=== PATIENT | male | born 1975 | race Caucasian/White ===

== ENCOUNTER 2017-04-06 15:57 | Inpatient (IN) | payer OTHER ==
[~2017-04-06] VITALS: Ht 180.3 cm; Wt 126.5 kg
[2017-04-06 16:24] LABS: BASOPHIL COUNT 0.2 K/uL (0-0.1); EOSINOPHIL (%) 1.6 % (0-5); EOSINOPHIL COUNT 0.3 K/uL (0-0.3); HEMATOCRIT 50.3 % (38.0-50.0); IMMATURE GRANULOCYTE (%) 0.8 % (0.0-0.7); IMMATURE GRANULOCYTE COUNT 0.2 K/uL; INSTRUMENT ABS NEUTROPHIL CT 9.9 K/uL; LYMPHOCYTE COUNT 6.3 K/uL (1.0-2.8); MCH 28.8 PG (29.0-34.0); MCV 89.8 FL (86-99); MEAN PLAT.VOLUME 10.4 uM^3 (9.0-12.4); MONOCYTE COUNT 1.3 K/uL (0-0.8); NEUTROPHIL COUNT 9.9 K/uL (1.8-6.4); PLATELET COUNT 238 K/uL (156-360); RBC DIS.WIDTH-CV 13.3 % (11.8-14.6); RBC DIS.WIDTH-SD 43.8 % (39-53); WHITE BLOOD COUNT 18.1 K/uL (4.1-10.2)
[2017-04-06 16:48] LABS: TROP-I INTERPRETATION NEGATIVE; TROPONIN-I 0.12 ng/mL (0.0-0.30)
[2017-04-06 17:07] LABS: CREATININE 1.4 mg/dL (0.6-1.3)
[2017-04-06 17:27] LABS: CARBOXY HGB 1.8 % (0-5); METHEMOGLOBIN 1.2 % (0-1.5); PCO2 72 mm Hg (35-45); PO2 57 mm Hg (80-100)
[2017-04-06 17:31] LABS: COMMENTS - BLOOD GASES A+C+; DEVICE VENT; FI02 100 %; MECHANICAL RATE 18 resp/min; MODE ACVC; PEEP 8 CM/H20; SITE RR; TIDAL VOLUME 600 ML; TOTAL RESP RATE 18 resp/min; pH < 6.91 (7.35-7.45)
[2017-04-06 17:36] LABS: CHLORIDE 111 mEq/L (99-109); POTASSIUM 3.4 mEq/L (3.7-5.4); SODIUM 146 mEq/L (136-147)
[2017-04-06 17:40] LABS: ANION GAP 24 MEQ/L (2-14); TOTAL BILIRUBIN 0.3 mg/dL (0.0-1.0)
[2017-04-06 17:42] LABS: ALKALINE PHOSPHATASE 97 IU/L (3-129); GFR ESTIMATE (CALCULATED) 44 mL/min/
[2017-04-06 17:43] LABS: UREA NITROGEN (BUN) 14 mg/dL (9-23)
[2017-04-06 17:56] LABS: GLUCOSE 508 mg/dL (70-99)
[2017-04-06 19:19] LABS: ADD MIUA? YES; BILIRUBIN NEGATIVE; BLOOD SMALL; COLOR YELLOW ((YELLOW)); GLUCOSE (STRIP) >=500; KETONES 5; LEUKOCYTES NEGATIVE; NITRITE NEGATIVE; PROTEIN (STRIP) >=500; SPECIFIC GRAVITY 1.011 (1.000-1.030); UROBILINOGEN 0.2 MG/DL (0.2-1.0)
[2017-04-06 19:20] LABS: BASE EXCESS -15.5 mEq/L (-3 to +3); BICARBONATE 13.3 mEq/L (22-26); COMMENTS - BLOOD GASES C+A+; DEVICE VENTILATOR; FI02 100 %; INSPIRATION TIME 0.9 seconds; MECHANICAL RATE 22 resp/min; METHEMOGLOBIN 1.3 % (0-1.5); MODE A/C VC+; PCO2 41 mm Hg (35-45); PEEP 7 CM/H20; PO2 120 mm Hg (80-100); SITE RR; TIDAL VOLUME 600 ML; TOTAL RESP RATE 27 resp/min
[2017-04-06 19:21] LABS: pH 7.12 (7.35-7.45)
[2017-04-06 19:38] LABS: BACTERIA 2+ /HPF; CASTS NONE SEEN /LPF; CRYSTALS NONE SEEN; EPITHELIAL CELLS RARE /HPF; MUCUS RARE /LPF; RED BLOOD CELLS 15-20 /HPF (0-5); UCUL ADDED? YES; WHITE BLOOD CELLS 30-40 /HPF (0-5)
[2017-04-06 19:49] LABS: AMPHETAMINE NEGATIVE (500 ng/mL); BARBITURATES NEGATIVE (200 ng/mL); BENZODIAZEPINES NEGATIVE (150 ng/mL); COCAINE NEGATIVE (150 ng/mL); INTERNAL CONTROLS VALID? YES; METHADONE NEGATIVE (200 ng/mL); METHAMPHETAMINE NEGATIVE (500 ng/mL); OPIATES (MORPHINE) NEGATIVE (100 ng/mL); OXYCODONE NEGATIVE (100 ng/mL); PHENCYCLIDINE NEGATIVE (25 ng/mL); PROPOXYPHENE NEGATIVE (300 ng/mL); THC CANNABINOIDS NEGATIVE (50 ng/mL); TRICYCLIC ANTIDEPRESSANTS NEGATIVE (300 ng/mL)
[2017-04-06 19:56] LABS: TROP-I INTERPRETATION NEGATIVE; TROPONIN-I 0.12 ng/mL (0.0-0.30)
[2017-04-06 20:54] LABS: POINT-OF-CARE METER ID UU14100415
[2017-04-06 20:55] VITALS: BP 135/84
[2017-04-06 21:05] VITALS: BP 135/78
[2017-04-06 21:20] VITALS: BP 129/78
[2017-04-06 21:22] LABS: BASE EXCESS -14.6 mEq/L (-3 to +3); BICARBONATE 13.6 mEq/L (22-26); CARBOXY HGB 1.3 % (0-5); METHEMOGLOBIN 2.3 % (0-1.5); PCO2 39 mm Hg (35-45)
[2017-04-06 21:25] LABS: COMMENTS - BLOOD GASES C+; DEVICE VENT; FI02 100 %; INSPIRATION TIME 0.9 seconds; MECHANICAL RATE 22 resp/min; MODE AC/VC+; PO2 351 mm Hg (80-100); SITE LR; TIDAL VOLUME 600 ML; TOTAL RESP RATE 28 resp/min; pH 7.15 (7.35-7.45)
[2017-04-06 21:26] LABS: PEEP 7 CM/H20
[2017-04-06 21:30] VITALS: BP 126/109
[2017-04-06 22:00] VITALS: BP 115/73
[2017-04-06 22:09] LABS: POINT-OF-CARE METER ID UU14314083
[2017-04-06 22:35] LABS: METH RESISTANT S AUREUS PCR NEGATIVE (NEGATIVE)
[2017-04-06 22:44] LABS: MAGNESIUM 1.9 mg/dL (1.3-2.7)
[2017-04-06 23:00] VITALS: BP 104/70
[2017-04-06 23:01] LABS: PROBE CHECK PASS; SPECIMEN PROCESSING CONTROL PASS
[2017-04-07] VITALS (22 sets, daily range): BP systolic 99–176; BP diastolic 62–112
[2017-04-07 00:12] LABS: CHLORIDE 111 mEq/L (99-109)
[2017-04-07 00:13] LABS: SODIUM 140 mEq/L (136-147)
[2017-04-07 00:16] LABS: ANION GAP 20 MEQ/L (2-14)
[2017-04-07 00:18] LABS: GFR ESTIMATE (CALCULATED) 41 mL/min/
[2017-04-07 00:19] LABS: GLUCOSE 407 mg/dL (70-99); UREA NITROGEN (BUN) 19 mg/dL (9-23)
[2017-04-07 00:20] LABS: POTASSIUM 4.4 mEq/L (3.7-5.4)
[2017-04-07 00:53] LABS: BASOPHIL COUNT 0.1 K/uL (0-0.1); EOSINOPHIL (%) 0 % (0-5); HEMATOCRIT 44.1 % (38.0-50.0); IMMATURE GRANULOCYTE (%) 3.2 % (0.0-0.7); IMMATURE GRANULOCYTE COUNT 1.1 K/uL; INSTRUMENT ABS NEUTROPHIL CT 27.8 K/uL; LYMPHOCYTE COUNT 2.1 K/uL (1.0-2.8); MCH 29.7 PG (29.0-34.0); MCHC 31.7 G/DL (30.0-36.0); MCV 93.6 FL (86-99); MEAN PLAT.VOLUME 10.5 uM^3 (9.0-12.4); MONOCYTE (%) 5.8 % (3-12); MONOCYTE COUNT 1.9 K/uL (0-0.8); NEUTROPHIL (%) 84.3 % (45-76); NEUTROPHIL COUNT 27.8 K/uL (1.8-6.4); PLATELET COUNT 233 K/uL (156-360); RBC DIS.WIDTH-CV 13.4 % (11.8-14.6); RBC DIS.WIDTH-SD 45.2 % (39-53); RED BLOOD COUNT 4.71 M/uL (4.00-5.50)
[2017-04-07 02:19] LABS: INFLUENZA A VIRAL ANTIGEN NEGATIVE; INFLUENZA B VIRAL ANTIGEN NEGATIVE
[2017-04-07 03:38] LABS: BASE EXCESS -12.4 mEq/L (-3 to +3); BICARBONATE 12.9 mEq/L (22-26); CARBOXY HGB 1.6 % (0-5); METHEMOGLOBIN 1.9 % (0-1.5)
[2017-04-07 03:39] LABS: COMMENTS - BLOOD GASES C+; DEVICE VENT; FI02 50 %; INSPIRATION TIME 0.9 seconds; MECHANICAL RATE 28 resp/min; MODE AC+; PCO2 28 mm Hg (35-45); PO2 129 mm Hg (80-100); SITE RR; TIDAL VOLUME 600 ML; TOTAL RESP RATE 28 resp/min; pH 7.27 (7.35-7.45)
[2017-04-07 03:40] LABS: PEEP 7 CM/H20
[2017-04-07 04:35] LABS: BASOPHIL COUNT 0.1 K/uL (0-0.1); EOSINOPHIL (%) 0 % (0-5); HEMATOCRIT 44.2 % (38.0-50.0); IMMATURE GRANULOCYTE (%) 1.2 % (0.0-0.7); IMMATURE GRANULOCYTE COUNT 0.3 K/uL; INSTRUMENT ABS NEUTROPHIL CT 22.7 K/uL; INTER. NORMALIZED RATIO 1.4; LYMPHOCYTE COUNT 1.8 K/uL (1.0-2.8); MCH 28.5 PG (29.0-34.0); MCHC 31.9 G/DL (30.0-36.0); MCV 89.5 FL (86-99); MEAN PLAT.VOLUME 10.3 uM^3 (9.0-12.4); MONOCYTE (%) 5.2 % (3-12); MONOCYTE COUNT 1.4 K/uL (0-0.8); NEUTROPHIL (%) 86.7 % (45-76); NEUTROPHIL COUNT 22.7 K/uL (1.8-6.4); PLATELET COUNT 213 K/uL (156-360); PROTHROMBIN TIME 15.5 SEC (10.2-12.9); RBC DIS.WIDTH-CV 13.4 % (11.8-14.6); RBC DIS.WIDTH-SD 43.8 % (39-53); RED BLOOD COUNT 4.94 M/uL (4.00-5.50); WHITE BLOOD COUNT 26.2 K/uL (4.1-10.2)
[2017-04-07 04:40] LABS: INTER. NORMALIZED RATIO 1.4; PROTHROMBIN TIME 15.4 SEC (10.2-12.9)
[2017-04-07 04:43] LABS: PTT 30.3 SEC (25-37)
[2017-04-07 04:52] LABS: TROP-I INTERPRETATION POSITIVE
[2017-04-07 04:55] LABS: TROPONIN-I 2.07 ng/mL (0.0-0.30)
[2017-04-07 05:03] LABS: CHLORIDE 108 mEq/L (99-109); POTASSIUM 5.2 mEq/L (3.7-5.4); SODIUM 140 mEq/L (136-147)
[2017-04-07 05:06] LABS: ANION GAP 19 MEQ/L (2-14)
[2017-04-07 05:09] LABS: GFR ESTIMATE (CALCULATED) 39 mL/min/
[2017-04-07 05:10] LABS: UREA NITROGEN (BUN) 22 mg/dL (9-23)
[2017-04-07 05:12] LABS: GLUCOSE 433 mg/dL (70-99); MAGNESIUM 1.5 mg/dL (1.3-2.7)
[2017-04-07 06:13] LABS: POINT-OF-CARE METER ID UU14314083
[2017-04-07 07:30] LABS: POINT-OF-CARE METER ID UU14208751
[2017-04-07 08:22] LABS: INTERNAL CONTROL VALID? YES
[2017-04-07 08:34] LABS: POINT-OF-CARE METER ID UU14208751
[2017-04-07 09:43] LABS: POINT-OF-CARE METER ID UU14208751
[2017-04-07 09:58] LABS: BASOPHIL COUNT 0.1 K/uL (0-0.1); EOSINOPHIL (%) 0 % (0-5); HEMATOCRIT 44.5 % (38.0-50.0); IMMATURE GRANULOCYTE (%) 1.2 % (0.0-0.7); IMMATURE GRANULOCYTE COUNT 0.3 K/uL; INSTRUMENT ABS NEUTROPHIL CT 22.8 K/uL; LYMPHOCYTE COUNT 2.4 K/uL (1.0-2.8); MCH 28.9 PG (29.0-34.0); MCHC 32.4 G/DL (30.0-36.0); MCV 89.2 FL (86-99); MEAN PLAT.VOLUME 10.5 uM^3 (9.0-12.4); MONOCYTE COUNT 1.6 K/uL (0-0.8); NEUTROPHIL (%) 83.7 % (45-76); NEUTROPHIL COUNT 22.8 K/uL (1.8-6.4); PLATELET COUNT 211 K/uL (156-360); RBC DIS.WIDTH-CV 13.6 % (11.8-14.6); RBC DIS.WIDTH-SD 44.2 % (39-53); RED BLOOD COUNT 4.99 M/uL (4.00-5.50); WHITE BLOOD COUNT 27.2 K/uL (4.1-10.2)
[2017-04-07 10:11] LABS: BASE EXCESS -8.4 mEq/L (-3 to +3); CARBOXY HGB 2.1 % (0-5); COMMENTS - BLOOD GASES NA C+; METHEMOGLOBIN 1.9 % (0-1.5); PCO2 26 mm Hg (35-45); PO2 78 mm Hg (80-100); SITE RR; pH 7.37 (7.35-7.45)
[2017-04-07 10:12] LABS: DEVICE VENT; FI02 40 %; MECHANICAL RATE 28 resp/min; MODE AC VC+; PEEP 5 CM/H20; TIDAL VOLUME 600 ML; TOTAL RESP RATE 28 resp/min
[2017-04-07 10:16] LABS: INTER. NORMALIZED RATIO 1.1; PROTHROMBIN TIME 12.8 SEC (10.2-12.9)
[2017-04-07 10:19] LABS: PTT 24.9 SEC (25-37)
[2017-04-07 10:20] LABS: TROP-I INTERPRETATION POSITIVE
[2017-04-07 10:21] LABS: ANION GAP 14 MEQ/L (2-14); CHLORIDE 111 MEQ/L (99-109); GLUCOSE 313 mg/dL (70-99); MAGNESIUM 2.3 mg/dl (1.3-2.7); POTASSIUM 4.2 MEQ/L (3.7-5.4); SAMPLE HEMOLYSIS CHECK 0; SAMPLE ICTERIC CHECK 0; SAMPLE LIPEMIA CHECK 0; SODIUM 140 MEQ/L (136-147); TROPONIN-I 1.86 ng/mL (0.0-0.30); UREA NITROGEN (BUN) 21 mg/dL (9-23)
[2017-04-07 10:26] LABS: GFR ESTIMATE (CALCULATED) 59 mL/min/
[2017-04-07 10:50] LABS: POINT-OF-CARE METER ID UU14208751
[2017-04-07 12:09] LABS: POINT-OF-CARE METER ID UU14174217; POINT-OF-CARE USER ID 612031313
[2017-04-07 12:22] LABS: EOSINOPHIL (%) 0 % (0-5); IMMATURE GRANULOCYTE (%) 1.2 % (0.0-0.7); IMMATURE GRANULOCYTE COUNT 0.3 K/uL; INSTRUMENT ABS NEUTROPHIL CT 22.9 K/uL; LYMPHOCYTE COUNT 1.9 K/uL (1.0-2.8); MCH 28.5 PG (29.0-34.0); MCHC 32.9 G/DL (30.0-36.0); MCV 86.6 FL (86-99); MEAN PLAT.VOLUME 10.4 uM^3 (9.0-12.4); MONOCYTE (%) 4.7 % (3-12); MONOCYTE COUNT 1.2 K/uL (0-0.8); NEUTROPHIL (%) 86.7 % (45-76); NEUTROPHIL COUNT 22.9 K/uL (1.8-6.4); PLATELET COUNT 185 K/uL (156-360); RBC DIS.WIDTH-CV 13.4 % (11.8-14.6); RED BLOOD COUNT 4.85 M/uL (4.00-5.50); WHITE BLOOD COUNT 26.3 K/uL (4.1-10.2)
[2017-04-07 12:27] LABS: INTER. NORMALIZED RATIO 1.1; PROTHROMBIN TIME 12.6 SEC (10.2-12.9)
[2017-04-07 12:43] LABS: TROP-I INTERPRETATION POSITIVE; TROPONIN-I 1.63 ng/mL (0.0-0.30)
[2017-04-07 12:48] LABS: ANION GAP 15 MEQ/L (2-14); CHLORIDE 112 MEQ/L (99-109); GFR ESTIMATE (CALCULATED) > 59 mL/min/; GLUCOSE 313 mg/dL (70-99); POTASSIUM 3.9 MEQ/L (3.7-5.4); SAMPLE HEMOLYSIS CHECK 0; SAMPLE ICTERIC CHECK 0; SAMPLE LIPEMIA CHECK 0; SODIUM 141 MEQ/L (136-147); UREA NITROGEN (BUN) 20 mg/dL (9-23)
[2017-04-07 13:12] LABS: POINT-OF-CARE METER ID UU14208751
[2017-04-07 14:09] LABS: POINT-OF-CARE METER ID UU14314083
[2017-04-07 15:10] LABS: POINT-OF-CARE METER ID UU14314083
[2017-04-07 16:11] LABS: BASE EXCESS -4.3 mEq/L (-3 to +3); BICARBONATE 17.8 mEq/L (22-26); COMMENTS - BLOOD GASES NA C+; DEVICE VENT; FI02 40 %; MECHANICAL RATE 28 resp/min; METHEMOGLOBIN 1.8 % (0-1.5); MODE AC VC+; PCO2 25 mm Hg (35-45); PO2 71 mm Hg (80-100); SITE RR; TOTAL RESP RATE 28 resp/min; pH 7.46 (7.35-7.45)
[2017-04-07 16:12] LABS: PEEP 5 CM/H20; TIDAL VOLUME 600 ML
[2017-04-07 16:15] LABS: POINT-OF-CARE METER ID UU14208751
[2017-04-07 16:33] LABS: EOSINOPHIL (%) 0 % (0-5); HEMATOCRIT 41.9 % (38.0-50.0); IMMATURE GRANULOCYTE (%) 1.5 % (0.0-0.7); IMMATURE GRANULOCYTE COUNT 0.4 K/uL; INSTRUMENT ABS NEUTROPHIL CT 24.4 K/uL; LYMPHOCYTE COUNT 1.9 K/uL (1.0-2.8); MCHC 33.2 G/DL (30.0-36.0); MCV 87.5 FL (86-99); MEAN PLAT.VOLUME 10.2 uM^3 (9.0-12.4); MONOCYTE (%) 5.1 % (3-12); MONOCYTE COUNT 1.4 K/uL (0-0.8); NEUTROPHIL (%) 86.5 % (45-76); NEUTROPHIL COUNT 24.4 K/uL (1.8-6.4); PLATELET COUNT 190 K/uL (156-360); RBC DIS.WIDTH-CV 13.6 % (11.8-14.6); RBC DIS.WIDTH-SD 43.5 % (39-53); RED BLOOD COUNT 4.79 M/uL (4.00-5.50); WHITE BLOOD COUNT 28.2 K/uL (4.1-10.2)
[2017-04-07 16:43] LABS: INTER. NORMALIZED RATIO 1.1; PROTHROMBIN TIME 12.4 SEC (10.2-12.9)
[2017-04-07 16:46] LABS: PTT 23.2 SEC (25-37)
[2017-04-07 16:53] LABS: TROP-I INTERPRETATION POSITIVE; TROPONIN-I 1.29 ng/mL (0.0-0.30)
[2017-04-07 16:57] LABS: ANION GAP 11 MEQ/L (2-14); CHLORIDE 112 MEQ/L (99-109); GFR ESTIMATE (CALCULATED) 59 mL/min/; GLUCOSE 207 mg/dL (70-99); POTASSIUM 3.6 MEQ/L (3.7-5.4); SAMPLE HEMOLYSIS CHECK 0; SAMPLE ICTERIC CHECK 0; SAMPLE LIPEMIA CHECK 0; SODIUM 144 MEQ/L (136-147); UREA NITROGEN (BUN) 19 mg/dL (9-23)
[2017-04-07 17:02] LABS: MAGNESIUM 1.9 mg/dl (1.3-2.7)
[2017-04-07 17:20] LABS: POINT-OF-CARE METER ID UU14314083
[2017-04-07 18:25] LABS: POINT-OF-CARE METER ID UU14208751
[2017-04-07 19:35] LABS: POINT-OF-CARE METER ID UU14208751; POINT-OF-CARE USER ID LABHNS84
[2017-04-07 19:54] LABS: POINT-OF-CARE METER ID UU14208751; POINT-OF-CARE USER ID LABHNS84
[2017-04-07 20:56] LABS: POINT-OF-CARE METER ID UU14208751; POINT-OF-CARE USER ID ENVSME70
[2017-04-07 21:59] LABS: POINT-OF-CARE METER ID UU14208751; POINT-OF-CARE USER ID LABHNS84
[2017-04-07 22:58] LABS: POINT-OF-CARE METER ID UU14208751; POINT-OF-CARE USER ID LABHNS84
[2017-04-08] VITALS (14 sets, daily range): BP systolic 82–165; BP diastolic 52–109
[2017-04-08] LABS: POINT-OF-CARE METER ID UU14314083
[2017-04-08 01:02] LABS: POINT-OF-CARE METER ID UU14314083
[2017-04-08 02:06] LABS: POINT-OF-CARE METER ID UU14208751
[2017-04-08 04:10] LABS: POINT-OF-CARE METER ID UU14208751
[2017-04-08 05:13] LABS: POINT-OF-CARE METER ID UU14314083
[2017-04-08 05:55] LABS: ANION GAP 11 MEQ/L (2-14); CHLORIDE 115 MEQ/L (99-109); GFR ESTIMATE (CALCULATED) > 59 mL/min/; GLUCOSE 128 mg/dL (70-99); POTASSIUM 4.1 MEQ/L (3.7-5.4); SAMPLE HEMOLYSIS CHECK 1; SAMPLE ICTERIC CHECK 0; SAMPLE LIPEMIA CHECK 0; SODIUM 146 MEQ/L (136-147); UREA NITROGEN (BUN) 16 mg/dL (9-23)
[2017-04-08 06:14] LABS: EOSINOPHIL (%) 0 % (0-5); HEMATOCRIT 37.1 % (38.0-50.0); IMMATURE GRANULOCYTE (%) 1.4 % (0.0-0.7); IMMATURE GRANULOCYTE COUNT 0.4 K/uL; INSTRUMENT ABS NEUTROPHIL CT 20.8 K/uL; LYMPHOCYTE COUNT 1.8 K/uL (1.0-2.8); MCH 29.2 PG (29.0-34.0); MCHC 33.4 G/DL (30.0-36.0); MCV 87.3 FL (86-99); MEAN PLAT.VOLUME 10.2 uM^3 (9.0-12.4); MONOCYTE (%) 7.2 % (3-12); MONOCYTE COUNT 1.8 K/uL (0-0.8); NEUTROPHIL (%) 83.8 % (45-76); NEUTROPHIL COUNT 20.8 K/uL (1.8-6.4); PLATELET COUNT 176 K/uL (156-360); RED BLOOD COUNT 4.25 M/uL (4.00-5.50); WHITE BLOOD COUNT 24.8 K/uL (4.1-10.2)
[2017-04-08 06:22] LABS: POINT-OF-CARE METER ID UU14208751
[2017-04-08 07:33] LABS: POINT-OF-CARE METER ID UU14208751; POINT-OF-CARE USER ID 612031313
[2017-04-08 07:45] LABS: Estimated Average Glucose 206 mg/dL (70-123); HEMOGLOBIN A1c (GLYCOHEMOGLOB) 8.8 % HGB (Below 5.7)
[2017-04-08 08:39] LABS: POINT-OF-CARE METER ID UU14314083
[2017-04-08 10:15] LABS: POINT-OF-CARE METER ID UU14208751
[2017-04-08 11:08] LABS: POINT-OF-CARE METER ID UU14314083
[2017-04-08 12:10] LABS: POINT-OF-CARE METER ID UU14314083
[2017-04-08 13:16] LABS: POINT-OF-CARE METER ID UU14314083
[2017-04-08 16:30] LABS: POINT-OF-CARE METER ID UU14314083
[2017-04-22 14:31] LABS: RESEND RESULTS RESEND RESULTS
== END 2017-04-08 16:18 | DRG 296 ==
LOC: EME 15:57 → 4WEST 18:54 → EDOF 18:54 → ENRESERV 18:55 → 4WEST 20:56
PROVIDERS: Emergency Medicine; Internal Medicine Critical Care Medicine; Internal Medicine Pulmonary Disease
PROC: 3E03317 Introduction of Other Thrombolytic into Peripheral Vein, Percutaneous Approach (ICD-10-PCS; principal; 2017-04-06)
PROC: 5A1945Z Respiratory Ventilation, 24-96 Consecutive Hours (ICD-10-PCS; principal; 2017-04-06)
PROC: 5A12012 Performance of Cardiac Output, Single, Manual (ICD-10-PCS; principal; 2017-04-06)
PROC: 0BH17EZ Insertion of Endotracheal Airway into Trachea, Via Natural or Artificial Opening (ICD-10-PCS; principal; 2017-04-06)
PROC: 06HY33Z Insertion of Infusion Device into Lower Vein, Percutaneous Approach (ICD-10-PCS; principal; 2017-04-06)
DX: I46.9 Cardiac arrest, cause unspecified (principal); J69.0 Pneumonitis due to inhalation of food and vomit; J96.01 Acute respiratory failure with hypoxia; G93.1 Anoxic brain damage, not elsewhere classified; G93.5 Compression of brain; G93.6 Cerebral edema; Z51.5 Encounter for palliative care; I48.91 Unspecified atrial fibrillation; N17.9 Acute kidney failure, unspecified; E86.1 Hypovolemia; E87.2 Acidosis; G91.9 Hydrocephalus, unspecified; I10 Essential (primary) hypertension; R40.2430 Glasgow coma scale score 3-8, unspecified time; R73.9 Hyperglycemia, unspecified
CPT/HCPCS: 36600; 70450; 71010; 71275; 80047; 80048; 80048 91; 80053; 80306 90; 81003; 82330; 82803; 82948; 83036; 83605; 83735; 83880; 84100; 84484; 85025; 85025 91; 85379; 85610; 85730; 87040; 87070; 87086; 87205; 87449; 87502; 87641; 93005; 93306; 94002; 94003; 95819; 99281; 99285; C1751; J0171; J0360; J0456; J0610; J0696; J1815; J1953; J2060; J2250; J2370; J2704; J2997; J3010; J3475; J7030; J7050; J7070; J7120; S0028